=== PATIENT | female | born 1960 | race Caucasian/White ===

== ENCOUNTER → 2020-05-23 14:56 | Outpatient (CLI) | payer OTHER, SELFPAY | PROVIDERS: Family Provider Family Medicine; PCP Internal Medicine; Referring Provider Internal Medicine; Visit Provider Internal Medicine | DX: M81.0 Age-related osteoporosis without current pathological fracture (principal); Z78.0 Asymptomatic menopausal state; M06.9 Rheumatoid arthritis, unspecified; Z82.62 Family history of osteoporosis | CPT/HCPCS: 77080 ==

== ENCOUNTER → 2020-05-24 12:49 | Outpatient (CLI) | payer OTHER, SELFPAY ==
--- NOTE | 2020-05-24 12:52 | DI.MG.S_ITS ---
BILATERAL DIGITAL SCREENING MAMMOGRAM 3D/2D WITH CAD: 05/24/2020 CLINICAL: Routine screening. Comparison is made to exams dated: 06/28/2017 mammogram, 12/03/2013 mammogram, and 01/12/2010 mammogram - [facility]. There are scattered fibroglandular elements in both breasts. Current study was also evaluated with a Computer Aided Detection (CAD) system. No significant masses, calcifications, or other findings are seen in either breast. There has been no significant interval change. IMPRESSION: NEGATIVE There is no mammographic evidence of malignancy. A 1 year screening mammogram is recommended. This exam was interpreted at Station ID: [id number]. NOTE: For mammograms, a report in lay terms will be sent to the patient. Approximately 15% of breast malignancies will not be visualized mammographically. In the management of a palpable breast mass, a negative mammogram must not discourage biopsy of a clinically suspicious lesion. Electronically Signed By: Martinez Rangel acr/joão:05/25/2020 14:46:14 letter sent: Normal Exam ACR BI-RADS Category 1: Negative [id number]
== END ==
PROVIDERS: Family Provider Family Medicine; PCP Internal Medicine; Referring Provider Family Medicine; Visit Provider Family Medicine
DX: Z12.31 Encounter for screening mammogram for malignant neoplasm of breast (principal)
CPT/HCPCS: 77063; 77067

== ENCOUNTER → 2020-07-30 10:16 | Outpatient (CLI) | payer OTHER, SELFPAY ==
[2020-07-30 11:01] LABS: COVID19 -Nasal RAPID Negative (Negative)
== END ==
PROVIDERS: PCP Internal Medicine; Visit Provider Physician Assistant
DX: Z20.822 Contact with and (suspected) exposure to COVID-19 (principal)
CPT/HCPCS: 87635

== ENCOUNTER 2020-08-01 12:45 | Day surgery (SDC) | payer OTHER, SELFPAY ==
[2020-08-01] VITALS (7 sets, daily range): BP systolic 94–114; BP diastolic 54–77; PULSE 57–81; RESP 14–22; TEMP 36.1–36.6; O2SAT 94–100; BMI 21.7
--- NOTE | 2020-08-01 12:18 | P.HP_ITS ---
History of Present Illness History of Present Illness Date Patient Seen: 08/01/20 Chief complaint: [facility] [place] Narrative: 59 Years Old Female seen today for consideration of a screening colonoscopy. She has never had a colonoscopy. There have been no lower GI symptoms suggesting disease such as change in bowel habits, bleeding, abdominal pain or anemia. There's been no family history of colon cancer or colon polyps. Overall health issues have been stable, including no major cardiac events for at least 6 weeks. 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 Meds Home Medications and Allergies Home Medications Medication Instructions Recorded Confirmed Type No Known Home Medications 08/01/20 08/01/20 History Allergies Allergy/AdvReac Type Severity Reaction Status Date / Time No Known Drug Allergies Allergy Verified 08/01/20 13:01 Review of Systems Review of Systems ROS: Yes All systems reviewed with the patient and are negative except as otherwise documented Exam Narrative Exam Narrative: General: well developed, well nourished, in no acute distress, Head: normocephalic and atraumatic, Lungs: normal respiratory effort, clear bilaterally to auscultation, no wheezes rales or rhonchi. Heart: normal rate and regular rhythm, no murmurs, rubs, gallops, or clicks, Abdomen: abdomen soft and non-tender without masses, organomegaly, or abdominal wall hernias, bowel sounds positive. Skin: intact without suspicious lesions or rashes, Psych: alert and cooperative; normal mood and affect; normal attention span and concentration; cognition, remote and recent memory appear to be intact, Assessment & Plan Assessment & Plan narrative: 1. Screening for colon cancer Plan for colonoscopy. The nature and character of the procedure as well as anticipated results were discussed. The possibility of not completing the procedure was also discussed. Possible complications including aspiration pneumonia, bleeding, perforation and reaction to medications either for sedation or preparation and missed lesions were discussed. Questions were answered and proceeding to the colonoscopy was elected. Informed consent signed. I sincerely appreciate the referral allowing me to participate in this patient's care. Please contact me with any questions or concerns.
--- NOTE | 2020-08-01 12:19 | PM.OP.ENDO ---
Operative Date/Time/Diagnoses Date of procedure: 08/01/20 Procedure Notes SCOAP/Timeout: 1:54 p.m. Procedure in detail: ENDOSCOPIST: Bridgette Munoz MD Sedation RN: Lizeth Deleon RN Sedation start time: 1:55 p.m. Sedation end time: 2:27 p.m. PROCEDURE: Colonoscopy INDICATIONS: 1. Screening for colon cancer MEDICATION: Levsin 0.125 mg sublingual, incremental doses of Versed and fentanyl until appropriate level sedation achieved. ASA CLASS: 2 CECAL WITHDRAWAL TIME: 6 minutes COMPLICATIONS: None. EXTENT OF PROCEDURE: Cecum. QUALITY OF PREP: Good with portions of liquid stool. PROCEDURE: Prior to insertion of the colonoscope, a digital rectal examination was accomplished with circumferential palpation of the distal rectal mucosa without significant findings being noted. The high-definition pediatric colonoscope was passed into the rectum in the usual fashion and advanced over to the cecum without difficulty. The ileocecal valve, appendiceal stoma, and medial wall all could be inspected and no abnormalities were seen. ASCENDING COLON: As the colonoscope was withdrawn, care was taken to expose and inspect the haustral folds and no abnormalities were seen. HEPATIC FLEXURE: Normal, no polyps, diverticula or other abnormalities. TRANSVERSE COLON: Normal, no polyps, diverticula or other abnormalities. DESCENDING COLON: Normal, no polyps, diverticula or other abnormalities. SIGMOID COLON: Normal, no polyps, diverticula or other abnormalities. RECTUM: Normal. J maneuver was produced. There was no significant perianal disease. The J maneuver was broken. The remainder of the rectum was inspected and there was no external hemorrhoid disease. The scope was withdrawn. IMPRESSION: 1. Normal colonoscopy PLAN: 1. Repeat colonoscopy in 10 years. The possibility of a missed lesion including a malignancy has been discussed with the patient previously. Potential alarm symptoms have been discussed and should be reported immediately.
[2020-08-01] MEDS: LACTATED RINGERS 1,000 ML 200 ML IV (13:05)
[2020-08-01] MEDS: HYOSCYAMINE 0.125 MG TABLET PO (13:06)
[2020-08-01] MEDS: MIDAZOLAM 5 MG/5 ML VIAL IV (14:11)
[2020-08-01] MEDS: fentaNYL 250 MCG/5 ML INJ IV (14:11)
== END 2020-08-01 15:25 | disposition home or self-care (01) ==
PROVIDERS: PCP Internal Medicine; Referring Provider Student in an Organized Health Care Education/Training Program; Visit Provider Student in an Organized Health Care Education/Training Program
PROC: 0DJD8ZZ Inspection of Lower Intestinal Tract, Via Natural or Artificial Opening Endoscopic (ICD-10-PCS; CPT 45378; principal; 2020-08-01 13:45)
DX: Z12.11 Encounter for screening for malignant neoplasm of colon (principal)
CPT/HCPCS: 45378; J2250; J3010

== ENCOUNTER → 2020-10-13 09:00 | Outpatient (CLI) | payer OTHER, SELFPAY ==
[2020-10-13 10:33] LABS: Alanine Aminotransferase 17 IU/L (<35); Albumin 4.4 g/dL (3.5-5.0); Albumin Globulin Ratio 1.6 (1.0-2.8); Alkaline Phosphatase 52 U/L (38-126); Aspartate Aminotransferase 26 IU/L (14-36); BUN Creatinine Ratio 24.2 (6-22); Bilirubin Total 1.1 mg/dL (0.2-1.3); Blood Urea Nitrogen 22 mg/dL (7-17); Calcium 10.2 mg/dL (8.4-10.2); Carbon Dioxide 27 mmol/L (22-32); Chloride 104 mmol/L (98-107); Estimated Glomerular Filt Rate > 60.0 mL/min (>60); Globulin 2.8 g/dL (1.7-4.1); Glucose 99 mg/dL (70-100); HEMOLYSIS < 15 (0-50); Potassium 4.2 mmol/L (3.4-5.1); Sodium 137 mmol/L (137-145); Total Protein 7.2 g/dL (6.3-8.2)
[2020-10-13 10:50] LABS: Free T4, Direct Thyroxine 1.38 ng/dL (0.78-2.19); Vitamin D 25 Hydroxy (D3) 54.2 ng/mL (30.0-100.0)
[2020-10-14 13:09] LABS: Calcium 9.7 mg/dL (8.7-10.2); Parathyroid Hormone, Intact 29 pg/mL (15-65)
== END ==
PROVIDERS: PCP Internal Medicine; Referring Provider Internal Medicine Endocrinology, Diabetes & Metabolism; Visit Provider Internal Medicine Endocrinology, Diabetes & Metabolism
DX: E83.52 Hypercalcemia (principal); M81.0 Age-related osteoporosis without current pathological fracture
CPT/HCPCS: 36415; 80053; 82306; 82310; 83970; 84439; 84443

== ENCOUNTER → 2020-10-14 10:42 | Outpatient (CLI) | payer OTHER, SELFPAY ==
[2020-10-15 12:39] LABS: Calcium, Urine 6.2 mg/dL (Not Estab.); Creatinine, Urine 58.2 mg/dL (Not Estab.); Urine Calcium/Creatinine Ratio 107 mg/g creat (29-442)
== END ==
PROVIDERS: PCP Internal Medicine; Referring Provider Internal Medicine Endocrinology, Diabetes & Metabolism; Visit Provider Internal Medicine Endocrinology, Diabetes & Metabolism
DX: E83.52 Hypercalcemia (principal)
CPT/HCPCS: 82340; 82570

== ENCOUNTER → 2020-12-26 08:51 | Outpatient (CLI) | payer OTHER, SELFPAY ==
[2020-12-26] MEDS: COVID-19 VACC, Ad26(JANSSEN)/PF 0.5 ML IM (09:00)
== END ==
PROVIDERS: PCP Internal Medicine; Visit Provider Internal Medicine
DX: Z23 Encounter for immunization (principal)
CPT/HCPCS: 0031A; 91303

== ENCOUNTER → 2021-06-05 14:59 | Outpatient (CLI) | payer OTHER, SELFPAY ==
--- NOTE | 2021-06-05 | DI.RAD.S_ITS ---
PROCEDURE: XR DEXA AXIAL SKELETON INDICATIONS: Age-related osteoporosis without current pathologi COMPARISON: [facility], CR, XR DEXA AXIAL SKELETON, 05/23/2020, 15:18. FINDINGS: This blank DEXA report has been sent in error by the PACS system. The correct and complete report will be forthcoming in 1-2 days. Thank you for your patience and understanding. Dictated by: Alysha Foreman MD, PhD on 06/05/2021 at 16:23 Approved by: Alysha Foreman MD, PhD on 06/05/2021 at 16:23
== END ==
PROVIDERS: PCP Internal Medicine; Referring Provider Internal Medicine; Visit Provider Internal Medicine
DX: M81.0 Age-related osteoporosis without current pathological fracture (principal); Z78.0 Asymptomatic menopausal state; M06.9 Rheumatoid arthritis, unspecified; Z82.62 Family history of osteoporosis
CPT/HCPCS: 77080

== ENCOUNTER 2022-02-04 16:55 | Emergency (ER) | payer OTHER, SELFPAY ==
--- NOTE | 2022-02-04 17:07 | DI.RAD.S_ITS ---
PROCEDURE: XR FOOT RT MIN 3V INDICATIONS: Fall TECHNIQUE: 3 views of the foot were acquired. COMPARISON: [facility], CR, ANKLE 3 VIEWS RIGHT, 05/26/2017, 9:49. [facility] [place], CR, XR ANKLE 3+ VIEWS RIGHT, 06/16/2017, 8:34. FINDINGS: Bones: No fractures or dislocations. No suspicious bony lesions. Stable fusion changes can be seen of the hindfoot. Incidental note is made of an accessory ossicle, an os peroneum. Soft tissues: No tibiotalar joint effusion. Achilles tendon appears normal. IMPRESSION: No definite, acute fracture can be seen. If there is point tenderness (or other clinical suspicion for a fracture not seen on these images) then a dedicated CT could be considered for further evaluation, if clinically appropriate. Stable fusion changes of the hindfoot. Dictated by: Matt Purcell M.D. on 02/04/2022 at 16:25 Approved by: Matt Purcell M.D. on 02/04/2022 at 16:27
[2022-02-04 17:08] VITALS: BP 153/72; PULSE 79; RESP 15; TEMP 36.9; O2SAT 99; BMI 22.6
--- NOTE | 2022-02-04 17:32 | ED.FALL ---
HPI - Fall <MARGOT Palumbo - Last Filed: 02/04/22 19:51> General Chief Complaint: Fall Stated Complaint: PT. Fell hurt Rt. foot Time Seen by Provider: 02/04/22 17:06 Source: patient Mode of arrival: Wheelchair History of Present Illness HPI Narrative: This is a 61-year-old female with history of right hindfoot fusion from juvenile arthritis and an injury as a child who presents to the emergency department after she jumped off of a dock and landed onto her right foot complaining of right midfoot pain with swelling, ecchymosis, and reports she is unable to bear any weight. Patient denies any surgery on her right lower extremity, states that she has significant pain in the midfoot region, states that her arch is flatter on the right due to her hindfoot fusion. She reports that she does not take any NSAIDs because she is status post parathyroid removal for hypercalcemia and osteopenia and reports that she had reduction of her GFR and is avoiding NSAIDs for this reason. She states that her GFR last was approximately 59. Patient is otherwise healthy, denies any other injuries from jumping off of a dock. She denies any low back pain, has not taking any medication prior to arrival. Related Data Previous Rx's Medication Instructions Recorded diclofenac sodium 1 % topical gel 2 g topical QID #100 grams 02/04/22 hydrocodone 5 mg-acetaminophen 325 1 tab PO BID PRN pain #10 tabs 02/04/22 mg tablet Allergies Allergy/AdvReac Type Severity Reaction Status Date / Time No Known Drug Allergies Allergy Verified 02/04/22 17:12 Review of Systems <MARGOT Palumbo - Last Filed: 02/04/22 19:51> Review of Systems Narrative: General: denies fever, chills Head/Neck: denies headache, neck pain Eyes: denies visual changes, eye pain Cardio: denies chest pain, palpitations Respiratory: denies shortness of breath, cough MSK: Skin: denies rash, itching or wound Neuro: denies numbness, tingling, dizziness Patient History <MARGOT Palumbo - Last Filed: 02/04/22 19:51> Social History household members: spouse Smoking Status: Never smoker alcohol intake: current Smoking Status: Never smoker alcohol intake frequency: a few times a week Substance Use Type: does not use Exam <MARGOT Palumbo - Last Filed: 02/04/22 19:51> Narrative Exam Narrative: Independently reviewed vitals signs and nursing notes. General: Awake, alert, nontoxic, no cardiorespiratory distress, interactive Head/Neck: Atraumatic, neck with normal range of motion Eyes: EOMI, conjunctiva normal Nose: nares patent, no rhinorrhea Mouth/Throat: moist mucus membranes Cardiovascular: Regular rate and rhythm, no dependant edema, warm extremities Respiratory: respirations unlabored and without wheezing, stridor, or rales. No retractions, hypoxia or tachypnea GI: Abdomen soft, nontender to palpation, without mass, guarding, or rebound tenderness MSK: Moves all extremities, neurovascularly intact, range of motion without deficit, Ecchymosis present on the medial aspect of her right midfoot, no tenderness over Achilles tendon, plantar aspect of her forefoot midfoot or hindfoot, she has a hindfoot fusion, states this has been present since childhood, plantar extension and dorsiflexion are intact without deficit, no tenderness over medial or lateral malleoli, no tenderness in her ankle, no tenderness over proximal 5th metatarsal, any ever metatarsals, forefoot, or hindfoot. No open wound, PT and DP pulses are both 2+, brisk cap refill in all toes. Skin: Normal capillary refill, no rash Neuro: Normal speech and cognition, normal gait Initial Vital Signs Initial Vital Signs: Vital Signs Temperature 98.5 F 02/04/22 17:08 Pulse Rate 79 02/04/22 17:08 Respiratory Rate 15 02/04/22 17:08 Blood Pressure 153/72 H 02/04/22 17:08 Pulse Oximetry 99 02/04/22 17:08 Oxygen Delivery Method 02/04/22 17:08 <Lorelei Warren DO - Last Filed: 02/05/22 18:47> Initial Vital Signs Initial Vital Signs: Vital Signs Temperature 98.5 F 02/04/22 17:08 Pulse Rate 79 02/04/22 17:08 Respiratory Rate 15 02/04/22 17:08 Blood Pressure 153/72 H 02/04/22 17:08 Pulse Oximetry 99 02/04/22 17:08 Oxygen Delivery Method 02/04/22 17:08 Course <MARGOT Palumbo - Last Filed: 02/04/22 19:51> Orders Ordered: Discontinued Medications Hydrocodone Bitart/Acetaminophen (Hydrocodone/Acet 5/325 Tablet) 1 tab PO NOW ONE Stop: 02/04/22 17:28 Last Admin: 02/04/22 18:06 Dose: 1 tab Documented By: BACILIO Robertsitracin (Bacitracin Oint 0.9 Gm Pckt) 1 applic TOP NOW ONE Stop: 02/04/22 17:35 Last Admin: 02/04/22 18:06 Dose: 1 applic Documented By: BACILIO Vital Signs Vital signs: Vital Signs - 8 hr 02/04/22 17:08 02/04/22 18:34 Temperature 98.5 F Pulse Rate 79 85 Respiratory Rate 15 19 Blood Pressure 153/72 H 123/59 L Pulse Oximetry 99 99 Oxygen Delivery Method Room Air Room Air <Lorelei Warren DO - Last Filed: 02/05/22 18:47> Orders Ordered: Discontinued Medications Hydrocodone Bitart/Acetaminophen (Hydrocodone/Acet 5/325 Tablet) 1 tab PO NOW ONE Stop: 02/04/22 17:28 Last Admin: 02/04/22 18:06 Dose: 1 tab Documented By: BACILIO Poseyacin (Bacitracin Oint 0.9 Gm Pckt) 1 applic TOP NOW ONE Stop: 02/04/22 17:35 Last Admin: 02/04/22 18:06 Dose: 1 applic Documented By: BACILIO Vital Signs Vital signs: Vital Signs - 8 hr 02/04/22 17:08 02/04/22 18:34 Temperature 98.5 F Pulse Rate 79 85 Respiratory Rate 15 19 Blood Pressure 153/72 H 123/59 L Pulse Oximetry 99 99 Oxygen Delivery Method Room Air Room Air MDM - Fall <MARGOT Palumbo - Last Filed: 02/04/22 19:51> Imaging Data Extremity x-ray #1: Radiologist's Impression: PROCEDURE:? XR FOOT RT MIN 3V ? INDICATIONS:? Fall ? TECHNIQUE:? 3 views of the foot were acquired.? ? COMPARISON:? [facility], CR, ANKLE 3 VIEWS RIGHT, 05/26/2017, 9:49.? [facility] [place], CR, XR ANKLE 3+ VIEWS RIGHT, 06/16/2017, 8:34. ? FINDINGS:? ? Bones:? No fractures or dislocations.? No suspicious bony lesions.? ? Stable fusion changes can be seen of the hindfoot. Incidental note is made of an accessory ossicle, an os peroneum.? ? Soft tissues:? No tibiotalar joint effusion.? Achilles tendon appears normal.? ? ? IMPRESSION:? No definite, acute fracture can be seen. ? If there is point tenderness (or other clinical suspicion for a fracture not seen on these images) then a dedicated CT could be considered for further evaluation, if clinically appropriate. ? Stable fusion changes of the hindfoot. ? ? Dictated by: Matt Purcell M.D. on 02/04/2022 at 16:25 ? ? Approved by: Matt Purcell M.D. on 02/04/2022 at 16:27 ? MDM Narrative Medical decision making narrative: This is a 61-year-old female who is recently status postop parathyroid removal for hypercalcemia and osteopenia who presents to the emergency department complaining of right midfoot pain after she jumped out of the boat onto the dock. She denies any other pain including low back pain. Patient has history of juvenile arthritis and a right hindfoot injury as a child with subsequent fusion of her hindfoot. X-ray of her right foot shows no definite acute fracture, and stable fusion changes of her hindfoot. Patient has moderate to large amount of ecchymosis and edema in her midfoot, PT and DP pulses are 2+, she is neurovascularly intact, brisk cap refill in all of her toes, she has a slightly flatter arching her right foot than her left, she states this is baseline for her. X-ray does not show any tibiotalar joint effusion and she did not have any tenderness over Achilles tendon or 5th metatarsal. She was fitted in a orthopedic boot and given crutches because she was unable to bear weight. A consultation for Dr. Leyva with Podiatry was placed for patient to follow-up with as an outpatient. Patient is able to dorsiflex and plantar extend without deficit, no tenderness with movement of toes and no tenderness over metatarsals. Patient has not had any open wound, encouraged her to ice, elevate, bear weight only as tolerated, and have a repeat x-ray if pain is ongoing in 5-7 days. She was given hydrocodone for pain, states she can not take NSAIDs due to her recent parathyroid removal, she was prescribed diclofenac gel for topical application NSAID. Patient understands to follow-up with Podiatry, return to the emergency department for any new or worsening symptoms, she does not have any sensation changes, she is neurovascularly intact. Patient is appropriate and amenable to discharge home. Vital signs are stable on repeat examination is unremarkable. Patient has been informed of results. Patient has been given strict return to ER precautions for any new or worsening symptoms. Patient understands to follow up closely with outpatient providers as instructed. Patient understands plan and agrees to discharge home. All questions and concerns answered at this time. Discharge Plan Departure Patient Disposition: Home Clinical Impression: Injury of foot, right Qualifiers: Encounter type: initial encounter Qualified Code(s): S99.921A - Unspecified injury of right foot, initial encounter Instructions: DI for Foot Fracture, DI for Foot Pain Activity Restrictions/Additional Instructions: *You have been diagnosed with a right midfoot injury. Your x-ray does not show any definite or acute fracture. It shows your fusion changes in the hindfoot as stable, there is no joint effusion and no obvious fractures of the bones of the midfoot. Please follow-up with Cassia Leyva from Podiatry if you continue to have pain. It might be worth a follow-up x-ray in 5-7 days to see if it lights up then. Your swelling is quite impressive and I am sorry for your pain. Please keep it immobilized as much as possible and weight bear as tolerated, you may need to use crutches, take hydrocodone every 6 hours as needed for your pain along with stool softeners if you need them. Stay hydrated, you can use topical Voltaren gel which may help decrease inflammation and swelling, keep it elevated and ice it frequently. I would recommend a follow-up x-ray either at Jennie Schaefer's office or when you follow-up with Dr. Cassia Leyva. *What to do: *Please continue to take your regular medications as directed. [ x] New medication prescriptions sent to your pharmacy: [[facility] ] [ ] New medication written as a paper prescription [ ] No new medications given *Please follow up with your primary care provider in 2-3 days, call for an appointment. Let them know you were seen in the Emergency Department and that we asked that you be seen for follow-up. We will electronically transmit a record of today's note if your PCP is in our system *If you do not have a primary care provider please contact [phone] to establish care with one of the [facility] primary care providers. *Return to Emergency Department if you should have any new, worsening or concerning symptoms, such as [fever greater than 101F, chills, worsening pain, persistent vomiting or other bothersome symptoms] Prescriptions: New hydrocodone-acetaminophen 5-325 mg tablet 1 tab PO BID PRN (Reason: pain) Qty: 10 0RF diclofenac sodium 1 % gel 2 g topical QID Qty: 100 0RF Rx Instructions: apply to single elbow, wrist or hand; for hand includes palm/fingers/back of hand Referrals: Cassia Leyva DPM [Physician] - Jennie Schaefer ARNP [Primary Care Provider] - Visit Report Forms: Patient Portal/API <Lorelei Warren DO - Last Filed: 02/05/22 18:47> Cosign ED Attending Maria Eugeniaature Attestation: I was immediately available in the department for consultation. Documentation has been reviewed.
[2022-02-04] MEDS: HYDROCODONE/ACET 5/325 TABLET 1 TAB PO (18:06)
[2022-02-04] MEDS: BACITRACIN OINT 0.9 GM PCKT 1 APPLIC TOP (18:06)
[2022-02-04 18:34] VITALS: BP 123/59; PULSE 85; RESP 19; O2SAT 99
== END 2022-02-04 18:38 | disposition home or self-care (01) ==
PROVIDERS: Emergency Provider Nurse Practitioner Critical Care Medicine; PCP Internal Medicine
DX: S99.921A Unspecified injury of right foot, initial encounter (principal); W19.XXXA Unspecified fall, initial encounter
CPT/HCPCS: 73630; 99283; 99284

== ENCOUNTER → 2022-02-22 12:42 | Outpatient (CLI) | payer OTHER, SELFPAY ==
--- NOTE | 2022-02-22 12:43 | DI.CT.S_ITS ---
PROCEDURE: CT LE RT WO CON INDICATIONS: RIGHT FOOT PAIN TECHNIQUE: Noncontrast 1-1.5 mm axial sections acquired from above the tibiotalar joint to the bottom of the calcaneus, with coronal and sagittal reformats. COMPARISON: [facility], CR, XR FOOT RT MIN 3V, 02/04/2022, 17:07. [facility] [place], CR, XR FOOT 3 VIEWS WEIGHT BEARING RIGHT, 02/10/2022, 16:01. FINDINGS: Image quality: Excellent. Bones: Severe osteoarthritic changes are seen involving talonavicular joint with joint space narrowing, subchondral sclerosis and cyst formation and prominent dorsal marginal osteophyte formation tenting dorsal talonavicular ligament. There is bony fusion at navicular cuneiform joints. Moderate to severe osteoarthritic changes are seen involving 2nd and 3rd TMT joints. Moderate osteoarthritic changes are noted throughout rest of the midfoot and hindfoot joints. Mild osteoarthritic changes are noted throughout forefoot joints. No acute fracture or dislocation. No suspicious intraosseous lesion. Soft tissues: There is no full-thickness ankle or foot tendon rupture. Plantar fascia is within normal limits. Achilles tendon is intact. No significant joint effusion or intra-articular loose bodies. No abnormal soft tissue calcifications. IMPRESSION: 1. Bony fusion at navicular cuneiform joints. Severe osteoarthritic changes are noted involving talonavicular joint, 2nd and 3rd TMT joints. [id number] osteoarthritic changes are noted throughout rest of the right foot. No acute fracture or dislocation. No suspicious intraosseous lesion. 2. No gross right foot and ankle soft tissue abnormalities. No abnormal soft tissue calcifications. No full-thickness tendon rupture. Dictated by: Vasiliy Bravo M.D. on 02/22/2022 at 14:51 Approved by: Vasiliy Bravo M.D. on 02/22/2022 at 14:57
== END ==
PROVIDERS: PCP Internal Medicine; Referring Provider Orthopaedic Surgery Foot and Ankle Surgery; Visit Provider Orthopaedic Surgery Foot and Ankle Surgery
DX: S93.324A Dislocation of tarsometatarsal joint of right foot, initial encounter (principal); M24.674 Ankylosis, right foot; X58.XXXA Exposure to other specified factors, initial encounter
CPT/HCPCS: 73700

== ENCOUNTER → 2023-08-19 14:33 | Outpatient (CLI) | payer OTHER, SELFPAY ==
--- NOTE | 2023-08-19 14:36 | DI.RAD.S_ITS ---
Bone Density Report Name: [facility] Age: 62 Sex: Female Ethnicity: White Date of : 1960 Indication: postmenopausal osteoporosis; monitoring treatment; Referring Provider: DEMETRI GONZALEZ Study: Bone densitometry was performed. Exam Date: August 19, 2023 Accession number: [id number] Bone Density: Region BMD T-score Z-score Classification AP Spine(L1-L4) 0.714 -3.0 -1.5 Osteoporosis Femoral Neck (Left) 0.549 -2.7 -1.4 Osteoporosis Total Hip (Left) 0.754 -1.5 -0.5 Osteopenia Femoral Neck (Right) 0.519 -3.0 -1.7 Osteoporosis Total Hip (Right) 0.682 -2.1 -1.1 Osteopenia Total Hip Mean 0.718 -1.8 -0.8 Osteopenia World Health Organization criteria for BMD impression classify patients as: Normal (T-score at or above -1.0), Osteopenia (T-score between -1.0 and -2.5), or Osteoporosis (T-score at or below -2.5). 10-year Fracture Risk: FRAX not reported because: Some T-score for Spine Total or Hip Total or Femoral Neck at or below -2.5 Treated for osteoporosis Previous Exams: -- Region Exam Age BMD T-score BMD Change BMD Change Date g/cm2 vs Baseline vs Previous -- AP Spine (L1-L4) 08/19/2023 62 0.714 -3.0 -0.080 (-10.1%)# -0.002 (-0.3%)# 06/05/2021 60 0.717 -3.0 -0.078 (-9.8%)* 0.025 (3.6%)* 05/23/2020 59 0.692 -3.2 -0.103 (-13.0%)* -0.065 (-8.6%)* 06/28/2017 56 0.757 -2.6 -0.038 (-4.8%)* -0.038 (-4.8%)* 12/03/2013 53 0.795 -2.3 Total Hip(Left) 08/19/2023 62 0.754 -1.5 -0.077 (-9.3%)# 0.004 (0.6%)# 06/05/2021 60 0.749 -1.6 -0.081 (-9.8%)* -0.017 (-2.2%) 05/23/2020 59 0.767 -1.4 -0.064 (-7.7%)* -0.004 (-0.5%) 06/28/2017 56 0.771 -1.4 -0.060 (-7.2%)* -0.060 (-7.2%)* 12/03/2013 53 0.831 -0.9 Total Hip(Right) 08/19/2023 62 0.682 -2.1 -0.058 (-7.9%)# 0.015 (2.2%)# 06/05/2021 60 0.667 -2.3 -0.073 (-9.9%)* -0.003 (-0.4%) 05/23/2020 59 0.670 -2.2 -0.070 (-9.5%)* -0.013 (-2.0%) 06/28/2017 56 0.684 -2.1 -0.057 (-7.7%)* -0.057 (-7.7%)* 12/03/2013 53 0.741 -1.7 -- *Denotes significance at 95% confidence level, LSC for AP Spine = 0.022 g/cm2, LSC for Total Hip = 0.027 g/cm2 # Denotes dissimilar scan types or analysis methods Impression: The patient has osteoporosis, based on the Total Spine T-score. No significant bone loss was observed. Discussion: PATIENT UNDER TREATMENT WITH NO SIGNIFICANT BMD LOSS SINCE LAST EXAM. In an untreated patient, BMD typically declines with age. A lack of decline or gain is usually a sign that treatment is efficacious and fracture risk is reduced. It is important to ask patients whether they are taking their medications and to encourage continued and appropriate compliance with their osteoporosis therapies to reduce fracture risk. It is also important to review their risk factors and encourage appropriate calcium and vitamin D intakes, exercise, fall prevention and other lifestyle measures. Follow-Up: Consider a repeat BMD and Vertebral Fracture Assessment (VFA) exam in 2 years or sooner if medically necessary, to reassess this patient's status. Reported by: MARVIN JULIEN M.D. on 08/19/2023 3:13:00 PM.
== END ==
PROVIDERS: PCP Internal Medicine; Referring Provider Internal Medicine; Visit Provider Internal Medicine
DX: M81.0 Age-related osteoporosis without current pathological fracture (principal); Z78.0 Asymptomatic menopausal state; Z13.29 Encounter for screening for other suspected endocrine disorder; N18.31 Chronic kidney disease, stage 3a; E83.52 Hypercalcemia; D35.1 Benign neoplasm of parathyroid gland; E89.2 Postprocedural hypoparathyroidism
CPT/HCPCS: 36415; 77080; 80053; 80061; 83970; 84439; 84443; 85025

== ENCOUNTER → 2023-08-19 15:26 | Outpatient (CLI) | payer OTHER, SELFPAY ==
[2023-08-19 18:05] LABS: Add Manual Diff / Slide Review NO; Basophils Absolute Auto 100 /uL (0-100); Basophils Percent Auto 0.8 % (0-2); Eosinophils Absolute Auto 200 /uL (0-450); Hematocrit 39.9 % (36-46); Hemoglobin 13.7 g/dL (12.0-16.0); Lymphocytes Absolute Auto 2600 /uL (1100-4500); Lymphocytes Percent Auto 38.8 % (25-40); Mean Corpuscular HGB Conc 34.3 % (30-36); Mean Corpuscular Hemoglobin 29.9 PG (26-34); Mean Corpuscular Volume 87.4 fL (80-100); Monocytes Absolute Auto 500 /uL (0-900); Monocytes Percent Auto 6.9 % (3-14); Neutrophils Absolute Auto 3400 /uL (1500-7000); Neutrophils Percent Auto 50.5 % (50-75); Platelet Count 197 X10^3/uL (150-400); Red Blood Cell Count 4.57 X10^6/uL (4.0-5.2); Red Cell Distribution Width 12.2 % (11.6-14.8); White Blood Cell Count 6.6 X10^3/uL (4.5-11.0)
[2023-08-19 18:34] LABS: Alanine Aminotransferase 18 IU/L (<35); Albumin 4.3 g/dL (3.5-5.0); Albumin Globulin Ratio 1.3 (1.0-2.8); Alkaline Phosphatase 62 U/L (38-126); Aspartate Aminotransferase 24 IU/L (14-36); Bilirubin Total 0.7 mg/dL (0.2-1.3); Blood Urea Nitrogen 16 mg/dL (7-17); Calcium 9.9 mg/dL (8.4-10.2); Carbon Dioxide 29 mmol/L (22-32); Chloride 102 mmol/L (98-107); Cholesterol 172 mg/dL (140-199); Estimated Glomerular Filt Rate > 60 mL/min (>60); Globulin 3.2 g/dL (1.7-4.1); Glucose 88 mg/dL (80-110); HDL Cholesterol 54 mg/dL (40-60); HEMOLYSIS < 15 (0-50); LDL Cholesterol Calculated 85 mg/dL (<100); Sodium 138 mmol/L (137-145); Total Protein 7.5 g/dL (6.3-8.2); Triglycerides 163 mg/dL (35-150)
[2023-08-19 18:49] LABS: Free T4, Direct Thyroxine 1.26 ng/dL (0.78-2.19)
[2023-08-19 19:03] LABS: Thyroid Stimulating Hormone 1.17 uIU/mL (0.47-4.68)
[2023-08-23 09:28] LABS: Parathyroid Hormone Int 15 pg/mL (15-65)
== END ==
PROVIDERS: PCP Internal Medicine; Referring Provider Internal Medicine; Visit Provider Internal Medicine
DX: Z13.29 Encounter for screening for other suspected endocrine disorder (principal); N18.31 Chronic kidney disease, stage 3a; E83.52 Hypercalcemia; M81.0 Age-related osteoporosis without current pathological fracture; D35.1 Benign neoplasm of parathyroid gland; E89.2 Postprocedural hypoparathyroidism
CPT/HCPCS: 36415; 80053; 80061; 83970; 84439; 84443; 85025

== ENCOUNTER → 2024-11-10 11:19 | Outpatient (CLI) | payer OTHER, SELFPAY ==
--- NOTE | 2024-11-10 11:20 | DI.MG.S_ITS ---
MM screening mammo BI: 11/10/2024. BI-RADS: 1 CLINICAL: 64-year old female for bilateral screening mammogram. Tyrer-Cuzick lifetime risk of 8.4%. No personal or first-degree family history of breast cancer. PRIOR EXAMS 05/24/2020, 06/28/2017. MAMMOGRAPHY TECHNIQUE: 2D and 3D (tomosynthesis) digital mammographic views obtained, with additional images as needed for full coverage. Current study was also evaluated with a Computer Aided Detection (CAD) system. DENSITY C. The breasts are heterogeneously dense, which may obscure small masses. MAMMOGRAPHY FINDINGS Bilateral: No suspicious mass, asymmetry, microcalcification, or other abnormality seen. IMPRESSION: * No evidence of malignancy. RECOMMENDATIONS Bilateral * Annual screening mammography. OVERALL ASSESSMENT CATEGORY BI-RADS-1: Negative. The [employer] recommends annual screening mammography beginning at age 40 for women with average risk of breast cancer. ELECTRONICALLY SIGNED: Sarmad Gutierrez M.D. on 11/12/2024 at 06:39:16 PM PT Interpreting Station ID: [id number]
== END ==
PROVIDERS: PCP Internal Medicine; Referring Provider Registered Nurse; Visit Provider Registered Nurse
DX: Z12.31 Encounter for screening mammogram for malignant neoplasm of breast (principal); R92.333 Mammographic heterogeneous density, bilateral breasts
CPT/HCPCS: 77063; 77067

== ENCOUNTER → 2024-11-16 12:34 | Outpatient (CLI) | payer OTHER, SELFPAY ==
--- NOTE | 2024-11-16 12:35 | DI.RAD.S_ITS ---
PROCEDURE: XR DEXA AXIAL SKELETON INDICATIONS: osteoporosis screening COMPARISON: [facility], CR, XR DEXA AXIAL SKELETON, 08/19/2023, 15:02. FINDINGS: Lumbar Spine: Bone mineral density 0.722 g/cm2, T score -3.0. There is interval 1.1% increase in total lumbar spine bone mineral density. Left Femoral Neck: Bone mineral density 0.551 g/cm2, T score -2.7. There is interval 0.5% increase in left femoral neck bone mineral density. Left Hip: Bone mineral density 0.741 g/cm2, T score -1.6. There is interval 1.7% decrease in left total hip bone mineral density. Fracture Risk Calculation (when applicable): 10-year fracture risk of a major osteoporotic fracture 16 percent and of a hip fracture 3.8 percent. (T score greater or equal to -1.0 to: NORMAL) (T score from -1.1 to -2.4: OSTEOPENIA) (T score less than or equal to -2.5: OSTEOPOROSIS) IMPRESSION: Osteoporosis. Follow-up guidelines as follows: Osteoporosis: Consider a repeat DEXA and Vertebral Fracture Assessment (VFA) exam in 2 years or sooner if medically necessary, to reassess this patient's status. Osteopenia: Consider a repeat DEXA in 2-3 years to reassess this patient's status, or if there is a new clinical indication. Normal: Consider a repeat DEXA in 5 years or sooner, or if there is a new clinical indication. All treatment decisions require clinical judgment and consideration of individual patient factors, including patient preferences, comorbidities, previous drug use, risk factors not captured in the FRAX model (e.g., frailty, falls, vitamin D deficiency, increased bone turnover, interval significant decline in bone density ) and possible under- or over-estimation of fracture risk by FRAX. In addition, the NOF Guide recommends that FDA-approved medical therapies be considered in postmenopausal women and men age >= 50 years with a: * Hip or vertebral (clinical or morphometric) fracture * T-score of <=-2.5 at the spine or hip * Ten-year fracture probability by FRAX of >= 3% for hip fracture or >=20% for major osteoporotic fracture. Dictated by: Vasiliy Bravo M.D. on 11/16/2024 at 18:14 Approved by: Vasiliy Bravo M.D. on 11/16/2024 at 18:25
== END ==
PROVIDERS: PCP Registered Nurse; Referring Provider Registered Nurse; Visit Provider Registered Nurse
DX: M81.0 Age-related osteoporosis without current pathological fracture (principal); Z78.0 Asymptomatic menopausal state
CPT/HCPCS: 77080